=== PATIENT | female | born 1985 | race Two or more races ===

== ENCOUNTER 2024-04-17 09:45 | Inpatient (IN) | payer OTHER ==
[~2024-04-17] VITALS: Ht 160 cm; Wt 147.4 kg
[~2024-04-17 09:45] MED LIST: PEPCID20 MG; ZOFRAN ODT8 MG/UDTAB
[2024-04-17] MEDS ORDERED: IRON325 MG PO (11:34)
[2024-04-17 12:20] LABS: HEMATOCRIT 25.5 % (36.0-45.00); MEAN CORPUSCULAR HGB CONC 31.5 g/dl (32.0-36.0); PLATELET COUNT 520 K/uL (150-450)
[2024-04-17 12:21] LABS: MEAN CELL VOLUME 65.5 fL (80.00-100.00); MEAN CORPUSCULAR HEMOGLOBIN 20.5 pg (27.00-32.0); RED CELL DISTRIBUTION WIDTH 18.7 % (11.5-14.5)
[2024-04-17 12:54] LABS: ALBUMIN 3.5 gm/dL (3.4-5.0); BILIRUBIN TOTAL 0.34 mg/dL (0.3-1.2); CALCIUM 8.8 mg/dL (8.5-10.1); CREATININE SERUM 0.74 mg/dL (0.55-1.02); GFR 87.83; GLOBULINA 3.6 G/DL (2.4-3.5); POTASSIUM 4.66 mEq/L (3.5-5.1); TOTAL PROTEIN 7.1 gm/dL (6.4-8.2)
[2024-04-17 13:03] LABS: INR 0.97; PARTIAL THROMBOPLASTIN TIME 24.8 SECONDS (22.0-34.0); PROTHROMBIN TIME 9.8 SECONDS (9.0-11.5)
[2024-04-17] MEDS ORDERED: SOD FERRIC GLUC COMPLX/SUCROSE 62.5 MG/5 ML AMPUL IV SCH (17:00)
[2024-04-17] MEDS ORDERED: FAMOtidine 20 MG TABLET PO SCH (21:00)
[2024-04-18] MEDS ORDERED: SOD FERRIC GLUC COMPLX/SUCROSE 62.5 MG/5 ML AMPUL IV SCH (09:00)
[2024-04-18 15:52] LABS: HEMATOCRIT 29.3 % (36.0-45.00); HEMOGLOBIN 9.3 g/dL (12.0-15.00); MEAN CORPUSCULAR HEMOGLOBIN 21.5 pg (27.00-32.0); MEAN CORPUSCULAR HGB CONC 31.7 g/dl (32.0-36.0); PLATELET COUNT 522 K/uL (150-450); RED BLOOD COUNT 4.31 M/uL (4.00-6.00); RED CELL DISTRIBUTION WIDTH 20.5 % (11.5-14.5)
[2024-04-18] MEDS ORDERED: ACETAMINOPHEN 500 MG GEL..CAP PO SCH (16:00)
[2024-04-18] MEDS ORDERED: ACETAMINOPHEN 500 MG GEL..CAP PO PRN (20:08)
[2024-04-19 04:03] LABS: HEMATOCRIT 29.6 % (36.0-45.00); HEMOGLOBIN 9.5 g/dL (12.0-15.00); MEAN CELL VOLUME 68.8 fL (80.00-100.00); MEAN CORPUSCULAR HEMOGLOBIN 22.1 pg (27.00-32.0); MEAN CORPUSCULAR HGB CONC 32.2 g/dl (32.0-36.0); PLATELET COUNT 449 K/uL (150-450); RED BLOOD COUNT 4.29 M/uL (4.00-6.00)
[2024-04-19] MEDS ORDERED: POVIDONE-IODINE 118 ML BOTT TOP ONE (11:55)
[2024-04-19] MEDS ORDERED: MORPHINE SULFATE 4 MG/ML VIAL IV PRN (12:45)
[2024-04-19] MEDS ORDERED: MORPHINE SULFATE 4 MG/ML CARTRIDGE IV PRN (12:45)
[2024-04-19] MEDS ORDERED: PROMETHAZINE HCL 50 MG/ML AMPUL IM ONE ×2 (12:45)
== END 2024-04-19 18:16 | disposition home or self-care (01) | DRG 745 ==
LOC: ADM 09:45 → OB/GYN 16:11 → CIR.AMB 04-19 09:45 → EDSTATUS 04-19 09:45 → OB/GYN 04-19 10:18
PROVIDERS: ADMIT Obstetrics & Gynecology; ATTEND Obstetrics & Gynecology
PROC: 30233N1 Transfusion of Nonautologous Red Blood Cells into Peripheral Vein, Percutaneous Approach (ICD-10-PCS; 2024-04-18)
PROC: 0UDB8ZZ Extraction of Endometrium, Via Natural or Artificial Opening Endoscopic (ICD-10-PCS; principal; 2024-04-19 09:30)
DX: N84.0 Polyp of corpus uteri (principal); Z20.822 Contact with and (suspected) exposure to COVID-19